=== PATIENT | female | born 1940 | race Caucasian/White ===

== ENCOUNTER 2017-12-15 06:14 | Day surgery (SDC) | payer MEDICARE ==
[2017-12-12 12:19] VITALS: BP 140/61
[2017-12-15] VITALS (18 sets, daily range): BP systolic 83–128; BP diastolic 33–66
[~2017-12-15] VITALS: Ht 149.9 cm; Wt 94.8 kg
[~2017-12-15 06:14] MED LIST: ALBU90AE IH; ALBUTEROL SULF IH; BUDESONIDE IH; CALTRATE PO; CHLORASEPTIC PO; CLINDAMYCIN 900 MG/D5% WATER 50 ML IV SCH; CLOTRIMAZOLE TP; DIPH25TA20 PO; DOCU250C14 PO; FOLI1TAB15 PO; FURO40TA5 PO; GABA-529 PO; GUAI120015 PO; IBUP-2353 PO; LACT10SO8 PO; METHOTREXATE INJ; MONT10TA24 PO; MULT-264 PO; OXYC5CAP19 PO; PANT40TA25 PO; PERFOROMIST; PHEN177S29 PO; PIRF267C PO; PRED10TA3 PO; PROP10DR4 OU; ROBITUSSIN PO; ROPI1TAB11 PO; TUMS PO; VITAMIN B 6 PO; VITAMIN B12 PO; [UNRECOGNIZED DRUG - REMARK]
[2017-12-15] MEDS ORDERED: LIDOCAINE PF 2% 5ML ABBOJECT ONE (06:48)
[2017-12-15] MEDS ORDERED: PROPOFOL 10 MG/ML 20ML VIAL IV ONE (06:48)
[2017-12-15] MEDS ORDERED: DEXAMETHASONE SOD PHOSPHATE 10MG/ML 1ML VIAL ONE (06:49)
[2017-12-15] MEDS ORDERED: ONDANSETRON HCL 4 MG/2 ML VIAL ONE (06:49)
[2017-12-15] MEDS ORDERED: FENTANYL CITRATE PF 50 MCG/1 ML 2ML VIAL ONE (06:49)
[2017-12-15] MEDS ORDERED: MIDAZOLAM HCL 1 MG/ML 2ML VIAL ONE (06:49)
[2017-12-15] MEDS ORDERED: LIDOCAINE HCL-MPF 0.5% 50ML VIAL IJ ONE (06:50)
[2017-12-15] MEDS ORDERED: CEFAZOLIN SODIUM 1 GM VIAL ONE (12:25)
[2017-12-15] MEDS ORDERED: MEPERIDINE-PF 25 MG/ML SYG ONE (12:46)
== END 2017-12-15 10:15 | disposition home or self-care (01) ==
LOC: DAH 06:14
PROVIDERS: ATTEND Neurological Surgery
DX: G56.02 Carpal tunnel syndrome, left upper limb (principal); Z79.899 Other long term (current) drug therapy; Z88.8 Allergy status to other drugs, medicaments and biological substances; Z88.0 Allergy status to penicillin; Z88.2 Allergy status to sulfonamides; R06.02 Shortness of breath
CPT/HCPCS: 64721; 93005; J0690; J1100; J2001; J2250; J2405; J2704; J3010; J3490; J2175

== ENCOUNTER → 2018-06-08 | Outpatient (CLI) | payer MEDICARE ==
[~2018-06-08] MED LIST changes: -CLINDAMYCIN 900 MG/D5% WATER 50 ML IV SCH; -PIRF267C PO; +PIRF267C2 PO
== END | disposition home or self-care (01) ==
LOC: RAH 13:17
PROVIDERS: ATTEND Physical Medicine & Rehabilitation
DX: R60.0 Localized edema (principal)
CPT/HCPCS: 93971